=== PATIENT | female | born 1975 | race Caucasian/White ===

== ENCOUNTER 2016-06-27 19:17 | Emergency (ER) | payer MEDICARE ==
[~2016-06-27] VITALS: Ht 154.9 cm; Wt 77.0 kg
[2016-06-27 19:21] VITALS: BP 144/83; PULSE 110; RESP 26; TEMP 98.1; O2SAT 96
[2016-06-27 19:27] VITALS: O2SAT 94
--- NOTE | 2016-06-27 19:28 | PD ---
HPI Chief Complaint: Respiratory Symptoms Time Seen by Provider: 19:25 Travel History International Travel<30 days: No Contact w/Intl Traveler<30days: No Traveled to known affect area: No History of Present Illness HPI Patient complaining of cough and shortness of breath, for approximately 2 months now. Patient states symptoms got worse today. Patient reports associated diaphoresis with this today. Patient has been using albuterol as well as steroids and was on antibiotics 2 weeks ago. Patient states that she recently traveled to [place] from [place] which is where she was diagnosed with unknown lung infection. Patient denies any nausea, vomiting, fevers, chest pain, or abdominal pain. Patient is having an associated headache. PFSH Past Medical History Anxiety: Yes Respiratory: Yes Social History Alcohol Use: Yes Tobacco Use: Yes Substance Use: No Allergies-Medications (Allergen,Severity, Reaction): Coded Allergies: No Known Allergies (Unverified , 06/27/16) Reported Meds & Prescriptions Reported Meds & Active Scripts Active Ventolin Hfa 18 GM Inh (Albuterol Sulfate) 90 Mcg/Act Aer 2 Puff INH Q4H PRN Reported Buspirone (Buspirone HCl) 5 Mg Tab 5 Mg PO BID Prednisone 10 Mg Tab 10 Mg PO DAILY Duloxetine DR (Duloxetine HCl) 30 Mg Capdr 30 Mg PO BID Review of Systems Except as stated in HPI: all other systems reviewed are Neg Physical Exam Narrative GENERAL: Well-developed, overly nourished, in no acute distress, and non-ill appearing. SKIN: Warm and dry. Mild diaphoretic. HEAD: Atraumatic. Normocephalic. EYES: Pupils equal and round. EOMI. No scleral icterus. No injection or drainage. ENT: No nasal bleeding or discharge. Mucous membranes pink and moist. NECK: Trachea midline. Supple. No nuclear rigidity. CARDIOVASCULAR: Regular rate and rhythm. No murmur appreciated. RESPIRATORY: No accessory muscle use. No respiratory distress. Clear to auscultation. Breath sounds equal bilaterally. MUSCULOSKELETAL: No obvious deformities. No clubbing. No cyanosis. No edema. Full range of motion. NEUROLOGICAL: Awake and alert. No obvious cranial nerve deficits. Motor grossly within normal limits. Normal speech. PSYCHIATRIC: Appropriate mood and affect; insight and judgment normal. Data Data Last Documented VS Vital Signs Date Time Temp Pulse Resp B/P Pulse Ox O2 Delivery O2 Flow Rate FiO2 06/27/16 21:22 122 24 106/69 98 Nasal Cannula 2 06/27/16 19:21 98.1 Orders Complete Blood Count With Diff (06/27/16 19:24) Basic Metabolic Panel (Bmp) (06/27/16 19:24) D-Dimer (06/27/16 19:24) Act Partial Throm Time (Ptt) (06/27/16 19:24) Prothrombin Time / Inr (Pt) (06/27/16 19:24) Ckmb (Isoenzyme) Profile (06/27/16 19:24) Troponin I (06/27/16 19:24) Iv Access Insert/Monitor (06/27/16:24) Electrocardiogram (06/27/16:24) Ecg Monitoring (06/27/16:24) Oximetry (06/27/16 19:24) Oxygen Administration (06/27/16 19:24) Chest, Single Ap (06/27/16 19:24) CKMB (06/27/16 19:51) CKMB% (06/27/16 19:51) Labs Laboratory Tests Test 06/27/16 19:51 White Blood Count 11.3 TH/MM3 Red Blood Count 4.76 MIL/MM3 Hemoglobin 15.7 GM/DL Hematocrit 44.8 % Mean Corpuscular Volume 94.1 FL Mean Corpuscular Hemoglobin 33.0 PG Mean Corpuscular Hemoglobin 35.0 % Concent Red Cell Distribution Width 12.6 % Platelet Count 221 TH/MM3 Mean Platelet Volume 8.0 FL Neutrophils (%) (Auto) 78.3 % Lymphocytes (%) (Auto) 14.8 % Monocytes (%) (Auto) 6.3 % Eosinophils (%) (Auto) 0.1 % Basophils (%) (Auto) 0.5 % Neutrophils # (Auto) 8.9 TH/MM3 Lymphocytes # (Auto) 1.7 TH/MM3 Monocytes # (Auto) 0.7 TH/MM3 Eosinophils # (Auto) 0.0 TH/MM3 Basophils # (Auto) 0.1 TH/MM3 CBC Comment DIFF FINAL Differential Comment Prothrombin Time 10.5 SEC Prothromb Time International 1.0 RATIO Ratio Activated Partial 24.5 SEC Thromboplast Time D-Dimer Quantitative (PE/DVT) 0.43 MG/L FEU Sodium Level 136 MEQ/L Potassium Level 3.8 MEQ/L Chloride Level 101 MEQ/L Carbon Dioxide Level 21.5 MEQ/L Anion Gap 14 MEQ/L Blood Urea Nitrogen 18 MG/DL Creatinine 0.87 MG/DL Estimat Glomerular Filtration 71 ML/MIN Rate Random Glucose 127 MG/DL Calcium Level 8.3 MG/DL Total Creatine Kinase 260 U/L Creatine Kinase MB 2.7 NG/ML Creatine Kinase MB % 1.0 % Troponin I LESS THAN 0.02 NG/ML MDM Medical Decision Making Medical Screen Exam Complete: Yes Emergency Medical Condition: Yes Interpretation(s) EKG reviewed by Dr. Pfeiffer. Shows sinus tachycardia with ventricular rate of 110. No STEMI. Differential Diagnosis Acute coronary syndrome, PE, pneumonia, bronchitis, COPD exacerbation, other Narrative Course The patient looks great. The patient is moving air well and in no distress nor significant dyspnea, and oxygen saturation is within normal limits. There is no clinical evidence to suggest pneumonia at this time. Diagnosis, plan of care and management were discussed with the patient who agreed with plan and feels better and ready to go home. The patient was instructed to return if worsen, worsening difficulty breathing or wheezing, persistent fever, chest pain or as needed. Patient in no obvious distress upon re-evaluation. All pertinent laboratory/ Radiology result(s) discussed with patient. Discussed patient with Dr. Pfeiffer, who saw and evaluated the patient and is in agreement with plan of care and disposition. Any questions/concerns in reference to patient diagnosis/ condition discussed and clarified prior to patient's discharge. Reinforced sheer importance of close follow up with patient's primary physician or primary care clinic. Instructed patient to return to ED immediately, if symptoms return/ worsen. Pt showed understanding of above instructions. Further instructions and recommendations were detailed in discharge paperwork. Pt ambulated without difficulty out of ED at discharge. Diagnosis Primary Impression: Dyspnea Qualified Code: R06.00 - Dyspnea, unspecified type Referrals: [facility] Primary Care Physician Patient Instructions: Dyspnea (ED), General Instructions Additional Instructions: Follow-up with your primary care physician this week for evaluation. Take all medication as prescribed. Return to the emergency department if symptoms get worse. Med/Other Pt SpecificInfo: Prescription(s) given Scripts Albuterol 18 GM Inh (Ventolin Hfa 18 GM Inh)90 Mcg/Act Aer2 Puff INH Q4H PRN ( SHORTNESS OF BREATH) #1 INHALER Ref 0 Prov:Rossi Pfeiffer MD 06/27/16 Disposition: 01 DISCHARGE HOME Condition: Stable Bry Vogel Jun 27, 2016 19:28
[2016-06-27] MEDS ORDERED: PRED10 PO (19:30)
[2016-06-27] MEDS ORDERED: DULO1CAP2 PO (19:30)
[2016-06-27] MEDS ORDERED: BUSP5TAB PO (19:30)
--- NOTE | 2016-06-27 19:50 | RADRPT ---
EXAM DATE/TIME: 06/27/2016 19:34 [facility] COMPARISON: No previous studies available for comparison. INDICATIONS : Short of breath MEDICAL HISTORY : None. SURGICAL HISTORY : None. ENCOUNTER: Initial ACUITY: 3 days PAIN SCORE: 0/10 LOCATION: Bilateral chest FINDINGS: A single view of the chest demonstrates the lungs to be symmetrically aerated without evidence of mas s, infiltrate or effusion. The cardiomediastinal contours are unremarkable. Osseous structures are intact. CONCLUSION: No evidence of acute cardiopulmonary disease. Ran Cole MD on June 27, 2016 at 19:48 Board Certified Radiologist. This report was verified electronically.
[2016-06-27 20:09] LABS: AUTOMATED NEUTROPHIL # 8.9 TH/MM3 (1.8-7.7); BASOPHIL # 0.1 TH/MM3 (0-0.2); BASOPHIL % 0.5 % (0.0-2.0); EOSINOPHIL % 0.1 % (0.0-4.0); HEMATOCRIT 44.8 % (35.0-46.0); HEMO FLAGS DIFF FINAL; LYMPH % 14.8 % (9.0-44.0); LYMPHOCYTE # 1.7 TH/MM3 (1.0-4.8); MEAN CELL VOLUME 94.1 FL (80.0-100.0); MONO % 6.3 % (0.0-8.0); NEUT % 78.3 % (16.0-70.0); PLATELET COUNT 221 TH/MM3 (150-450); RED BLOOD COUNT 4.76 MIL/MM3 (4.00-5.30); RED CELL DISTRIBUTION WIDTH 12.6 % (11.6-17.2); WHITE BLOOD COUNT 11.3 TH/MM3 (4.0-11.0)
[2016-06-27 20:27] LABS: ANION GAP 14 MEQ/L (5-15); BICARBONATE 21.5 MEQ/L (21.0-32.0); BLOOD UREA NITROGEN 18 MG/DL (7-18); CHLORIDE 101 MEQ/L (98-107); GLOMERULAR FILTRATION RATE 71 ML/MIN (>89); POTASSIUM 3.8 MEQ/L (3.5-5.1); SODIUM (NA) 136 MEQ/L (136-145)
[2016-06-27 20:31] LABS: CREATINE KINASE 260 U/L (26-192)
[2016-06-27 20:40] LABS: APTT (PATIENT) 24.5 SEC (24.3-30.1); PROTHROMBIN TIME - PATIENT 10.5 SEC (9.8-11.6)
[2016-06-27 20:43] LABS: CKMB 2.7 NG/ML (0.5-3.6)
[2016-06-27 21:22] VITALS: BP 106/69; PULSE 122; RESP 24; O2SAT 98
[2016-06-27] MEDS ORDERED: VENTAER INH (21:30)
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
--- NOTE | 2016-06-28 10:34 | EKG ---
Date Performed: 06/27/2016 Time Performed: 19:39:08 PTAGE: 40 years EKG: SINUS TACHYCARDIA POSSIBLE LEFT ATRIAL ENLARGEMENT POSSIBLE RIGHT VENTRICULAR CONDUCTION DE LAY ABNORMAL RHYTHM ECG NO PREVIOUS TRACING DOCTOR: Jagdish Pfeiffer Interpretating Date/Time 06/28/2016 10:32:35
== END 2016-06-27 21:45 | disposition home or self-care (01) ==
LOC: NEPC 19:17
DX: R06.00 Dyspnea, unspecified (principal); R05 Cough; R51 Headache; Z72.0 Tobacco use; R94.31 Abnormal electrocardiogram [ECG] [EKG]
CPT/HCPCS: 71010; 80048; 82550; 82552; 84484; 85025; 85379; 85610; 85730; 93005